=== PATIENT | female | born 1995 | race American Indian/Alaskan Native ===

== ENCOUNTER 2020-12-27 21:38 | Emergency (ER) | payer SELFPAY | END 2020-12-28 | disposition left against medical advice (07) | LOC: ED 21:38 | DX: M79.89 Other specified soft tissue disorders (principal); Z53.21 Procedure and treatment not carried out due to patient leaving prior to being seen by health care provider ==

== ENCOUNTER 2021-05-05 21:56 | Emergency (ER) | payer OTHER ==
[2021-05-05 22:25] VITALS: BP 107/61
[2021-05-05 23:04] LABS: Basophils % (Auto) 0.2 % (0.0-1.8); Eosinophils # (Auto) 0.1 K/mm3 (0.0-0.4); Eosinophils % (Auto) 1.7 % (0.0-4.3); Hematocrit 36.1 % (30.3-42.9); Hemoglobin 11.9 gm/dl (10.1-14.3); Lymphocytes # (Auto) 2.2 K/mm3 (1.2-5.4); Lymphocytes % (Auto) 27.3 % (13.4-35.0); Mean Corpuscular HGB Conc 33 % (30-34); Mean Corpuscular Volume 97 fl (79-97); Monocytes # (Auto) 0.5 K/mm3 (0.0-0.8); Platelet Count 137 K/mm3 (140-440); Red Blood Count 3.71 M/mm3 (3.65-5.03)
[2021-05-06] MEDS ORDERED: FAMOTIDINE 20 MG TAB PO ONE (00:18)
[2021-05-06] MEDS ORDERED: ONDANSETRON 4 MG ODT TAB PO ONE (00:18)
[2021-05-06] MEDS ORDERED: oxyCODONE /ACETAMINOPHEN 5-325MG TAB PO ONE (00:18)
[2021-05-06] MEDS ORDERED: IBUPROFEN 600 MG TAB PO ONE (00:19)
[2021-05-06 00:37] LABS: Bacteria,Urine 2+ /HPF (Negative); Bilirubin,Urine NEG (Negative); Blood,Urine SM (Negative); Color,Urine Yellow (Yellow); Mucus,Urine FEW /HPF; Protein,Urine <15 mg/dL mg/dL (Negative)
--- NOTE | 2021-05-06 00:48 | Emergency Department Report ---
ED Female HPI - General Chief complaint: Vaginal Bleeding Stated complaint: LOWER STOMACH PAIN CHEST PAIN Source: patient Mode of arrival: Ambulatory Limitations: No Limitations - History of Present Illness Initial comments: Patient is a A3 25-year-old -[place] female with history of asthma and tobacco abuse who presents to the ED with complaint of acute onset pe rsistent severe pelvic pain with heavy vaginal bleeding with clots for the last 2 days. Patient states that her LMP was April 03, 2021 but states that she does not believe that her current pain may be related to her menstrual cycle. Patient unsure as to whether she may be or not. Patient denies dysuria, urinary frequency and urgency, vaginal discharge, dizziness, syncope, chest pain, shortness of breath, cough, fever, chills, diarrhea or low back pain. MD Complaint: vaginal bleeding, pelvic pain -: Sudden, days(s) (2) Location: suprapubic, other (Vaginal) Radiation: non-radiating Severity: severe Severity scale (0 -10): 8 Quality: cramping, sharp Consistency: constant Improves with: none Worsens with: menstrual period, movement Are you Now?: No Last Menstrual Period: 04/03/21 EDC: 01/08/22 Associated Symptoms: denies other symptoms, vaginal bleeding, abdominal pain (Suprapubic pain), loss of appetite. denies: vaginal discharge, nausea/vomiting, fever/chills, headaches, dysuria, hematuria, rash, seizure, shortness of breath, syncope, other - Related Data Sexually active: Yes : 5 Para: 2 A: 3 Previous Rx's Medication Instructions Recorded Last Taken Type Famotidine [Pepcid] 20 mg PO Q12H PRN #40 tablet 05/06/21 Unknown Rx Naproxen 500 mg PO Q12H PRN #30 tablet 05/06/21 Unknown Rx Nitrofurantoin Love/M-Cryst 100 mg PO Q12HR #14 capsule 05/06/21 Unknown Rx [Macrobid CAP] Ondansetron [Zofran Odt] 4 mg PO Q6HR PRN #15 tab.rapdis 05/06/21 Unknown Rx traMADoL [Ultram] 50 mg PO Q6HR PRN #12 tablet 05/06/21 Unknown Rx Allergies Allergy/AdvReac Type Severity Reaction Status Date / Time Penicillins Allergy Unknown Verified 05/05/21 22:21 ED Review of Systems ROS: Stated complaint: LOWER STOMACH PAIN CHEST PAIN Other details as noted in HPI Constitutional: denies: chills, fever Eyes: denies: eye pain, eye discharge, vision change ENT: denies: ear pain, throat pain Respiratory: denies: cough, shortness of breath, wheezing Cardiovascular: denies: chest pain, palpitations Endocrine: no symptoms reported Gastrointestinal: abdominal pain (Pelvic pain). denies: nausea, vomiting, diarrhea Genitourinary: abnormal menses (Heavy vaginal bleeding with clots). denies: urgency, dysuria, discharge Musculoskeletal: denies: back pain, joint swelling, arthralgia Skin: denies: rash, lesions Neurological: denies: headache, weakness, paresthesias Psychiatric: denies: anxiety, depression Hematological/Lymphatic: denies: easy bleeding, easy bruising ED Past Medical Hx - Past Medical History Previous Medical History?: Yes Hx Asthma: Yes - Surgical History Past Surgical History?: Yes Additional Surgical History: open heart surgery - Social History Smoking Status: Never Smoker Substance Use Type: Marijuana - Medications Home Medications: Home Medications Medication Instructions Recorded Confirmed Last Taken Type Famotidine [Pepcid] 20 mg PO Q12H PRN #40 tablet 05/06/21 Unknown Rx Naproxen 500 mg PO Q12H PRN #30 tablet 05/06/21 Unknown Rx Nitrofurantoin Love/M-Cryst 100 mg PO Q12HR #14 capsule 05/06/21 Unknown Rx [Macrobid CAP] Ondansetron [Zofran Odt] 4 mg PO Q6HR PRN #15 tab.rapdis 05/06/21 Unknown Rx traMADoL [Ultram] 50 mg PO Q6HR PRN #12 tablet 05/06/21 Unknown Rx ED Physical Exam - General Limitations: No Limitations General appearance: alert, in no apparent distress - Head Head exam: Present: atraumatic, normocephalic, normal inspection - Eye Eye exam: Present: normal appearance, PERRL, EOMI Pupils: Present: normal accommodation - ENT ENT exam: Present: normal exam, normal orophraynx, mucous membranes moist, TM's normal bilaterally, normal external ear exam - Neck Neck exam: Present: normal inspection, full ROM - Respiratory Respiratory exam: Present: normal lung sounds bilaterally. Absent: respiratory distress, wheezes, rales, chest wall tenderness, decreased breath sounds - Cardiovascular Cardiovascular Exam: Present: regular rate, normal rhythm, normal heart sounds. Absent: systolic murmur, diastolic murmur, rubs, gallop - GI/Abdominal GI/Abdominal exam: Present: soft, tenderness (Palpable suprapubic tenderness), normal bowel sounds. Absent: guarding, hyperactive bowel sounds, hypoactive bowel sounds, organomegaly - Bi-manual exam: Present: other (Pelvic exam deferred at this time) - Extremities Exam Extremities exam: Present: normal inspection, full ROM, normal capillary refill - Back Exam Back exam: Present: normal inspection, full ROM. Absent: tenderness, CVA tenderness (R), CVA tenderness (L), muscle spasm, paraspinal tenderness, vertebral tenderness - Neurological Exam Neurological exam: Present: alert, oriented X3, CN II-XII intact, normal gait, reflexes normal - Psychiatric Psychiatric exam: Present: normal affect, normal mood - Skin Skin exam: Present: warm, dry, intact, normal color. Absent: rash ED Course Vital Signs 05/05/21 22:23 Temperature 97.5 F L Pulse Rate 68 Respiratory 16 Rate Blood Pressure 107/61 O2 Sat by Pulse 100 Oximetry ED Medical Decision Making - Lab Data Result diagrams: 05/05/21 22:27 - Medical Decision Making This is a A3 25-year-old -[place] female with history of asthma and tobacco abuse who presents to the ED with complaint of acute onset persistent severe pelvic pain with heavy vaginal bleeding with clots for the last 2 days. Patient states that her LMP was April 03, 2021 but states that she does not believe that her current pain may be related to her menstrual cycle. Patient unsure as to whether she may be or not. In the ED, patient is alert and oriented x3 and is not in any distress. Patient is hemodynamically stable. Lab test results were reviewed and are all nonactionable including hCG quant which is negative. Urinalysis shows urinary tract infection. Patient was treated for pain in the ED and on reevaluation, patient's pain is well controlled medications. Patient discharged home on pain medications and anti biotics and advised to take medication with food, plenty of fluids and follow-up with [employer] physician and 7 to 10 days for reevaluation. Patient is advised return to the ED immediately if symptoms get worse. - Differential Diagnosis Dysmenorrhea; UTI; ; ovarian cyst; STD; uterine fibroids Critical care attestation.: If time is entered above; I have spent that time in minutes in the direct care of this critically ill patient, excluding procedure time. ED Disposition Clinical Impression: Severe dysmenorrhea, Acute urinary tract infection Disposition: HOME / SELF CARE / HOMELESS Is pt being admited?: No Does the pt Need Aspirin: No Condition: Stable Instructions: Urinary Tract Infection, Adult, [id number], Dysmenorrhea, [id number] Additional Instructions: Follow-up test results were reviewed and all nonactionable including test which was negative. Urinalysis showed urinary tract infection. Your symptoms are likely due to severe dysmenorrhea or menstrual cramps. Therefore take medication with food, drink plenty of fluids and follow-up with your primary care physician or [employer] physician in 5 to 7 days for reevaluation or return to the ED immediately if symptoms get worse. Prescriptions: Nitrofurantoin Love/M-Cryst [Macrobid CAP] 100 mg PO Q12HR #14 capsule Naproxen 500 mg PO Q12H PRN #30 tablet PRN Reason: Pain , Severe (7-10) Famotidine [Pepcid] 20 mg PO Q12H PRN #40 tablet PRN Reason: Heart burn traMADoL [Ultram] 50 mg PO Q6HR PRN #12 tablet PRN Reason: Pain Ondansetron [Zofran Odt] 4 mg PO Q6HR PRN #15 tab.rapdis PRN Reason: Nausea Referrals: SOLANGE TINOCO MD [Staff Physician] - 3-5 Days Forms: Work/School Release Form(ED) Time of Disposition: 00:50 Print Language: POLISH
== END 2021-05-06 01:35 | disposition home or self-care (01) ==
LOC: ED 21:56
DX: N94.6 Dysmenorrhea, unspecified (principal); N39.0 Urinary tract infection, site not specified; J45.909 Unspecified asthma, uncomplicated; Z98.890 Other specified postprocedural states; Z88.0 Allergy status to penicillin
CPT/HCPCS: 36415; 81001; 84702; 85025; 86900; 86901; 87086; 99283; Q0162

== ENCOUNTER 2021-05-06 19:25 | Emergency (ER) | payer OTHER | END 2021-05-06 19:51 | disposition left against medical advice (07) | LOC: ED 19:25 | DX: N39.0 Urinary tract infection, site not specified (principal); Z53.21 Procedure and treatment not carried out due to patient leaving prior to being seen by health care provider ==